=== PATIENT | male | born 1980 | race Two or more races ===

== ENCOUNTER 2022-12-04 12:49 | Emergency (ER) | payer OTHER, MEDICAID ==
[~2022-12-04] VITALS: Ht 177.8 cm; Wt 100.0 kg
[2022-12-04 13:11] VITALS: PULSE 58; RESP 18; O2SAT 95
[2022-12-04] MEDS ORDERED: SODIUM CHLORIDE 0.9% 1,000 ML IV ONE (13:15)
[2022-12-04 14:28] VITALS: BP 100/67; PULSE 61; RESP 20; TEMP 98.4; O2SAT 97
== END 2022-12-04 15:19 | disposition home or self-care (01) ==
LOC: ER 12:49
DX: R55 Syncope and collapse (principal)
CPT/HCPCS: 93005; 96360; 99283; J7030

== ENCOUNTER 2024-02-15 06:43 | Emergency (ER) | payer OTHER, MEDICAID ==
[~2024-02-15] VITALS: Ht 180.3 cm; Wt 97.8 kg
[2024-02-15 08:15] VITALS: PULSE 96; RESP 19; O2SAT 96
[2024-02-15 08:37] VITALS: BP 120/86; PULSE 96; RESP 16; TEMP 98.2; O2SAT 96
[2024-02-15] MEDS: KETOROLAC TROMETH 60MG/2ML VIAL IM ONE (08:37)
[2024-02-15] MEDS ORDERED: IBUP-1456 PO (08:58)
[2024-02-15] MEDS ORDERED: PRED20TA2 PO (08:58)
== END 2024-02-15 09:18 | disposition home or self-care (01) ==
LOC: ER 06:43
DX: M50.10 Cervical disc disorder with radiculopathy, unspecified cervical region (principal); R68.84 Jaw pain; F10.90 Alcohol use, unspecified, uncomplicated; Z79.1 Long term (current) use of non-steroidal anti-inflammatories (NSAID)
CPT/HCPCS: 70110; 72040; 96372; 99284; J1885